=== PATIENT | female | born 1935 | race Caucasian/White ===

== ENCOUNTER 2020-10-05 15:42 | Emergency (ER) | payer MEDICARE, OTHER ==
[~2020-10-05] VITALS: Ht 162.6 cm; Wt 58.0 kg
[~2020-10-05 15:42] MED LIST: CALC600T19 PO; CYCL-1 PO; DILT120T3 PO; GLUC100017 PO; IBUP-1984 PO; LEVO137T2 PO; MELO-102 PO; MULT-1179 PO; NITR0.4T48 SL; PROC5TAB56 PO; SUMA25TA35 PO; VITAMIN B PLUS PO; VITAMIN C PO; VITE1000C PO
[2020-10-05 17:03] LABS: BASOPHILS % (AUTO) 0.4 % (0-1); EOSINOPHILS # (AUTO) 0.2 X10'3 (0-0.9); EOSINOPHILS % (AUTO) 3.2 % (0-6); HEMATOCRIT 38.9 % (35.0-45.0); HEMOGLOBIN 13.2 g/dl (12.0-16.0); LYMPHOCYTES # (AUTO) 0.7 X10'3 (1.1-4.8); MEAN CORPUSCULAR HEMOGLOBIN 34.4 PG (27.0-31.0); MEAN CORPUSCULAR VOLUME 101.2 FL (78-98); MEAN PLATELET VOLUME 8.3 FL (7.4-10.4); MONOCYTES # (AUTO) 0.6 X10'3 (0-0.9); MONOCYTES % (AUTO) 8.2 % (2-12); NEUTROPHILS # (AUTO) 5.2 X10'3 (1.8-7.7); NEUTROPHILS % (AUTO) 77.2 % (42-75); PLATELET COUNT 181 X10'3 (140-440); RED BLOOD COUNT 3.84 X10'6 (4.20-5.60); RED CELL DISTRIBUTION WIDTH 13.1 % (11.5-14.5); WHITE BLOOD COUNT 6.7 X10'3 (4.5-11.0)
[2020-10-05 17:18] LABS: PARTIAL THROMBOPLASTIN TIME 25 SECONDS (22-32)
[2020-10-05 17:20] LABS: ALANINE AMINOTRANSFERASE 25 U/L (12-78); ALBUMIN 3.9 G/DL (3.4-5.0); ALBUMIN/GLOBULIN RATIO 1.1 (1.1-1.5); ALKALINE PHOSPHATASE 56 IU/L (46-116); ANION GAP 5 (8-16); ASPARTATE AMINO TRANSFERASE 19 U/L (10-37); BILIRUBIN,TOTAL 0.4 MG/DL (0.1-1.0); BLOOD UREA NITROGEN 16 MG/DL (7-18); BUN/CREATININE RATIO 18.6 (6.6-38.0); CALCIUM 9.6 MG/DL (8.5-10.1); CHLORIDE 105 MMOL/L (99-107); CREATININE 0.86 MG/DL (0.40-0.90); GLUCOSE 104 MG/DL (70-104); POTASSIUM 3.9 MMOL/L (3.5-5.1); SODIUM 142 MMOL/L (135-145); TOTAL CARBON DIOXIDE 32.1 MMOL/L (24-32); TOTAL PROTEIN 7.6 G/DL (6.4-8.2); eGFR 63 ML/MIN
[2020-10-05 18:13] LABS: CLARITY,URINE CLEAR (Clear); COLOR,URINE YELLOW (Yellow); GLUCOSE, URINE NEGATIVE (Neg); KETONES,URINE NEGATIVE (Neg); LEUKOCYTE ESTERASE ,URINE SMALL (Neg); NITRITES, URINE NEGATIVE (Neg); OCCULT BLOOD,URINE NEGATIVE (Neg); PROTEIN,URINE NEGATIVE (Neg); UROBILINOGEN,URINE 0.2 E.U/dL (0.2-1.0)
[2020-10-05 18:19] LABS: UA COLLECTION TYPE CLN CATCH MIDSTREAM
[2020-10-05 18:20] LABS: BACTERIA,URINE NONE SEEN /HPF (Neg); RBC,URINE NONE SEEN /HPF (0-2); SQUAMOUS EPITHELIAL CELL,UR FEW /LPF (FEW); WBC,URINE 0-4 /HPF (0-4)
[2020-10-05] MEDS ORDERED: AMOX-117 PO (19:51)
[2020-10-05 20:11] VITALS: BP 173/84
== END 2020-10-05 20:03 | disposition home or self-care (01) ==
LOC: ER 15:42
DX: J32.3 Chronic sphenoidal sinusitis (principal); Z20.828 Contact with and (suspected) exposure to other viral communicable diseases; G43.909 Migraine, unspecified, not intractable, without status migrainosus; I10 Essential (primary) hypertension; J44.9 Chronic obstructive pulmonary disease, unspecified; F17.200 Nicotine dependence, unspecified, uncomplicated; Z85.9 Personal history of malignant neoplasm, unspecified; Z88.8 Allergy status to other drugs, medicaments and biological substances; Z79.2 Long term (current) use of antibiotics; Z79.899 Other long term (current) drug therapy
CPT/HCPCS: 36415; 70450; 71045; 80053; 81001; 85025; 85610; 85730; 87088; 87635; 93005; 99285

== ENCOUNTER 2024-05-07 15:36 | Emergency (ER) | payer MEDICARE, OTHER ==
[~2024-05-07] VITALS: Ht 162.6 cm; Wt 56.0 kg
[2024-05-07 15:50] VITALS: TEMP 97.9
[2024-05-07] MEDS ORDERED: fluorescein sod 1mg ophthalmic strip LEFTEYE ONE (16:10)
[2024-05-07] MEDS ORDERED: proparacaine 0.5% ophthalmic drops 15ml RIGHTEYE ONE (16:10)
[2024-05-07] MEDS: proparacaine 0.5% ophthalmic drops 15ml LEFTEYE ONE (16:52)
[2024-05-07] MEDS: mineral oil/petrolatum ophthal oint LEFTEYE ONE (17:15)
[2024-05-07 18:18] VITALS: BP 166/66; PULSE 52; RESP 16; O2SAT 97
== END 2024-05-07 18:29 | disposition home or self-care (01) ==
LOC: ER 15:37
DX: T15.82XA Foreign body in other and multiple parts of external eye, left eye, initial encounter (principal); H57.12 Ocular pain, left eye; J44.9 Chronic obstructive pulmonary disease, unspecified; Z88.8 Allergy status to other drugs, medicaments and biological substances; Z88.5 Allergy status to narcotic agent; Z88.6 Allergy status to analgesic agent; Z79.899 Other long term (current) drug therapy; W44.9XXA Unspecified foreign body entering into or through a natural orifice, initial encounter; Y93.89 Activity, other specified; Y92.89 Other specified places as the place of occurrence of the external cause; Y99.8 Other external cause status
CPT/HCPCS: 99284